=== PATIENT | male | born 1940 | race Caucasian/White ===

== ENCOUNTER 2016-12-24 20:09 | Inpatient (IN) | payer OTHER, MEDICARE ==
[~2016-12-24] VITALS: Ht 182.9 cm; Wt 74.4 kg
[2016-12-24 20:14] VITALS: BP 190/129; PULSE 93; RESP 18; TEMP 97.6; O2SAT 97
[2016-12-24 20:57] VITALS: BP 224/134; PULSE 119; PULSE 20; RESP 18; TEMP 98.1; O2SAT 99
[2016-12-24 21:03] LABS: BASOPHIL # 0.1 TH/MM3 (0-0.2); BASOPHIL % 0.8 % (0.0-2.0); EOSINOPHIL # 0.1 TH/MM3 (0-0.4); EOSINOPHIL % 1.1 % (0.0-4.0); HEMO FLAGS DIFF FINAL; LYMPH % 19.1 % (9.0-44.0); LYMPHOCYTE # 2.4 TH/MM3 (1.0-4.8); MEAN CELL VOLUME 85.6 FL (80.0-100.0); MEAN CORPUSCULAR HEMOGLOBIN 27.9 PG (27.0-34.0); MEAN CORPUSCULAR HGB CONC 32.6 % (32.0-36.0); MONO % 7.8 % (0.0-8.0); NEUT % 71.2 % (16.0-70.0); PLATELET COUNT 306 TH/MM3 (150-450); RED BLOOD COUNT 5.26 MIL/MM3 (4.50-5.90); RED CELL DISTRIBUTION WIDTH 14.5 % (11.6-17.2); WHITE BLOOD COUNT 12.6 TH/MM3 (4.0-11.0)
[2016-12-24] MEDS ORDERED: DILTIAZEM HCL 25 MG/5 ML VIAL IV ONE (21:15)
[2016-12-24] MEDS ORDERED: SODIUM CHLORIDE 0.9% FLUSH 10 ML FLUSH IVF PRN (21:15)
--- NOTE | 2016-12-24 21:21 | PD ---
HPI Chief Complaint: Psychiatric Symptoms Time Seen by Provider: 21:15 Travel History International Travel<30 days: No Contact w/Intl Traveler<30days: No Traveled to known affect area: No History of Present Illness HPI Patient is a 76-year-old male presenting to emergency for under [place] act to suicidal ideations. Additionally patient has initially complained of chest pain or shortness of breath. Or to noncompliance of his medications for well over a year. He states she's been depressed for some time, he was previously prescribed citalopram but states marijuana works better. Patient denies any previous suicide attempt but states he's thought about suicide for some time now. He reports that he would cut his wrists. Patient is , he lives with his . He states that the relationship is good most of the time until recently. Patient would not elaborate as to what was going on. His past medical history is significant for atrial fibrillation, throat cancer, coronary artery disease, hypothyroidism, hyperlipidemia, COPD, depression, pacemaker. PFSH Past Medical History Atrial Fibrillation: Yes Depression: Yes Cancer: Yes (throat) High Cholesterol: Yes COPD: Yes Coronary Artery Disease: Yes Hypertension: Yes Thyroid Disease: Yes Past Surgical History Body Medical Devices: pacemaker Coronary Stent: Yes Other Surgery: Yes (throat surgery, carotid) Social History Alcohol Use: No Tobacco Use: No Substance Use: Yes (marijuana) Allergies-Medications (Allergen,Severity, Reaction): Uncoded Allergies: pain meds (Adverse Reaction, Unknown, 12/24/16) pt states he gets ill Reported Meds & Prescriptions Reported Meds & Active Scripts Active Eliquis (Apixaban) 5 Mg Tab 5 Mg PO BID Cardizem CD 24 HR (Diltiazem CD 24 HR) 120 Mg Caper 120 Mg PO DAILY Synthroid (Levothyroxine Sodium) 100 Mcg Tab 100 Mcg PO DAILY Review of Systems Except as stated in HPI: all other systems reviewed are Neg Cardiovascular: Positive: Chest Pain or Discomfort Respiratory: Positive: Shortness of Breath Psychiatric: Positive: Depression, Suicidal Ideations Physical Exam Narrative \GENERAL: Well-developed, well-nourished, alert elderly gentleman. Tearful, in no acute distress SKIN: Warm and dry. HEAD: Atraumatic. Normocephalic. EYES: Pupils equal and round. No scleral icterus. No injection or drainage. ENT: No nasal bleeding or discharge. Mucous membranes pink and moist. NECK: Trachea midline. No JVD. CARDIOVASCULAR: Irregularly irregular, no murmur noted. RESPIRATORY: No accessory muscle use. Clear to auscultation. Breath sounds diminished GASTROINTESTINAL: Abdomen soft, non-tender, nondistended. Hepatic and splenic margins not palpable. MUSCULOSKELETAL: Extremities without clubbing, cyanosis, or edema. No obvious deformities. NEUROLOGICAL: Awake and alert. No obvious cranial nerve deficits. Motor grossly within normal limits. Five out of 5 muscle strength in the arms and legs. Normal speech. PSYCHIATRIC: Depressed mood and affect; insight and judgment impaired. Data Data Last Documented VS Vital Signs Date Time Temp Pulse Resp B/P Pulse Ox O2 Delivery O2 Flow Rate FiO2 12/25/16 06:48 98.1 97 18 136/101 99 Room Air Orders Electrocardiogram (12/24/16 20:25) Complete Blood Count With Diff (12/24/16 20:25) Basic Metabolic Panel (Bmp) (12/24/16 20:25) Ckmb (Isoenzyme) Profile (12/24/16 20:25) Troponin I (12/24/16 20:25) Chest, Single Ap (12/24/16 20:25) Iv Access Insert/Monitor (12/24/16 20:25) Ecg Monitoring (12/24/16 20:25) Oxygen Administration (12/24/16 20:25) Oximetry (12/24/16 20:25) Comprehensive Metabolic Panel (12/24/16 21:05) B-Type Natriuretic Peptide (12/24/16 21:05) Magnesium (Mg) (12/24/16 21:05) Urinalysis - C+S If Indicated (12/24/16 21:05) Sodium Chloride 0.9% Flush (Ns Flush) (12/24/16 21:15) Thyroid Stimulating Hormone (12/24/16 21:05) Free Thyroxine (T4) (12/24/16 21:05) Diltiazem Inj (Cardizem Inj) (12/24/16 21:15) Diltiazem (Cardizem) (12/24/16 21:45) Electrocardiogram (12/24/16 ) Sodium Chlorid 0.9% 500 Ml Inj (Ns 500 M (12/24/16 22:30) Act Partial Throm Time (Ptt) (12/24/16 23:06) Prothrombin Time / Inr (Pt) (12/24/16 23:06) Levothyroxine (Synthroid) (12/24/16 23:30) Apixaban (Eliquis) (12/24/16 23:30) Ondansetron Inj (Zofran Inj) (12/25/16 00:30) ^ Other Nursing Orders (12/25/16 08:11) Admit To Inpatient Psych (12/25/16 ) Vital Signs (Adult) POLLO.Q12H.E (12/25/16 08:12) Activity Oob Ad Karen (12/25/16 08:12) Lorazepam (Ativan) (12/25/16 08:15) Lorazepam Inj (Ativan Inj) (12/25/16 08:15) Lorazepam (Ativan) (12/25/16 08:15) Lorazepam Inj (Ativan Inj) (12/25/16 08:15) Acetaminophen (Tylenol) (12/25/16 08:15) Magnesium Hydroxide Liq (Milk Of Magnesi (12/25/16 08:15) Al-Mag Hy-Si 40-40-4 Mg/Ml Liq (Mag-Al P (12/25/16 08:15) Nicotine 21 Mg Patch.24 Hr (Habitrol 21 (12/25/16 09:00) Basic Metabolic Panel (Bmp) (12/26/16 06:00) Lipid Profile (12/26/16 06:00) Hemoglobin (Hgb) A1c (12/26/16 06:00) Consult Psychiatry (12/25/16 ) Consult Hospitalist (12/25/16 ) Labs Laboratory Tests Test 12/24/16 12/24/16 12/24/16 20:30 22:20 23:17 White Blood Count 12.6 TH/MM3 Red Blood Count 5.26 MIL/MM3 Hemoglobin 14.7 GM/DL Hematocrit 45.0 % Mean Corpuscular Volume 85.6 FL Mean Corpuscular Hemoglobin 27.9 PG Mean Corpuscular Hemoglobin 32.6 % Concent Red Cell Distribution Width 14.5 % Platelet Count 306 TH/MM3 Mean Platelet Volume 8.7 FL Neutrophils (%) (Auto) 71.2 % Lymphocytes (%) (Auto) 19.1 % Monocytes (%) (Auto) 7.8 % Eosinophils (%) (Auto) 1.1 % Basophils (%) (Auto) 0.8 % Neutrophils # (Auto) 9.0 TH/MM3 Lymphocytes # (Auto) 2.4 TH/MM3 Monocytes # (Auto) 1.0 TH/MM3 Eosinophils # (Auto) 0.1 TH/MM3 Basophils # (Auto) 0.1 TH/MM3 CBC Comment DIFF FINAL Differential Comment Sodium Level 140 MEQ/L Potassium Level 4.1 MEQ/L Chloride Level 106 MEQ/L Carbon Dioxide Level 21.8 MEQ/L Anion Gap 12 MEQ/L Blood Urea Nitrogen 19 MG/DL Creatinine 1.80 MG/DL Estimat Glomerular Filtration 37 ML/MIN Rate Random Glucose 93 MG/DL Calcium Level 10.3 MG/DL Magnesium Level 2.0 MG/DL Total Bilirubin 0.7 MG/DL Aspartate Amino Transf 12 U/L (AST/SGOT) Alanine Aminotransferase 14 U/L (ALT/SGPT) Alkaline Phosphatase 70 U/L Total Creatine Kinase 67 U/L Troponin I LESS THAN 0.02 NG/ML B-Type Natriuretic Peptide 131 PG/ML Total Protein 8.6 GM/DL Albumin 4.1 GM/DL Free Thyroxine 0.97 NG/DL Thyroid Stimulating Hormone 22.700 uIU/ML 3rd Gen Urine Color YELLOW Urine Turbidity CLEAR Urine pH 6.0 Urine Specific [place] 1.010 Urine Protein 100 mg/dL Urine Glucose (UA) NEG mg/dL Urine Ketones NEG mg/dL Urine Occult Blood SMALL Urine Nitrite NEG Urine Bilirubin NEG Urine Urobilinogen LESS THAN 2.0 MG/DL Urine Leukocyte Esterase MOD Urine RBC LESS THAN 1 /hpf Urine WBC 4 /hpf Urine Squamous Epithelial <1 /hpf Cells Urine Transitional Epithelial <1 /hpf Cells Urine Mucus FEW /lpf Microscopic Urinalysis Comment CULT NOT INDICATED Prothrombin Time 11.2 SEC Prothromb Time International 1.0 RATIO Ratio Activated Partial 24.7 SEC Thromboplast Time MDM Medical Decision Making Medical Screen Exam Complete: Yes Emergency Medical Condition: Yes Interpretation(s) Last Impressions Chest X-Ray 12/24/162024 Signed Impressions: Service Date/Time: Saturday, December 24, 2016 20:41 - CONCLUSION: No acute disease. Toi Call MD FACR Laboratory Tests Test 12/24/16 12/24/16 20:30 22:20 White Blood Count 12.6 TH/MM3 Red Blood Count 5.26 MIL/MM3 Hemoglobin 14.7 GM/DL Hematocrit 45.0 % Mean Corpuscular Volume 85.6 FL Mean Corpuscular Hemoglobin 27.9 PG Mean Corpuscular Hemoglobin 32.6 % Concent Red Cell Distribution Width 14.5 % Platelet Count 306 TH/MM3 Mean Platelet Volume 8.7 FL Neutrophils (%) (Auto) 71.2 % Lymphocytes (%) (Auto) 19.1 % Monocytes (%) (Auto) 7.8 % Eosinophils (%) (Auto) 1.1 % Basophils (%) (Auto) 0.8 % Neutrophils # (Auto) 9.0 TH/MM3 Lymphocytes # (Auto) 2.4 TH/MM3 Monocytes # (Auto) 1.0 TH/MM3 Eosinophils # (Auto) 0.1 TH/MM3 Basophils # (Auto) 0.1 TH/MM3 CBC Comment DIFF FINAL Differential Comment Sodium Level 140 MEQ/L Potassium Level 4.1 MEQ/L Chloride Level 106 MEQ/L Carbon Dioxide Level 21.8 MEQ/L Anion Gap 12 MEQ/L Blood Urea Nitrogen 19 MG/DL Creatinine 1.80 MG/DL Estimat Glomerular Filtration 37 ML/MIN Rate Random Glucose 93 MG/DL Calcium Level 10.3 MG/DL Magnesium Level 2.0 MG/DL Total Bilirubin 0.7 MG/DL Aspartate Amino Transf 12 U/L (AST/SGOT) Alanine Aminotransferase 14 U/L (ALT/SGPT) Alkaline Phosphatase 70 U/L Total Creatine Kinase 67 U/L Troponin I LESS THAN 0.02 NG/ML B-Type Natriuretic Peptide 131 PG/ML Total Protein 8.6 GM/DL Albumin 4.1 GM/DL Free Thyroxine 0.97 NG/DL Thyroid Stimulating Hormone 22.700 uIU/ML 3rd Gen Urine Color YELLOW Urine Turbidity CLEAR Urine pH 6.0 Urine Specific [place] 1.010 Urine Protein 100 mg/dL Urine Glucose (UA) NEG mg/dL Urine Ketones NEG mg/dL Urine Occult Blood SMALL Urine Nitrite NEG Urine Bilirubin NEG Urine Urobilinogen LESS THAN 2.0 MG/DL Urine Leukocyte Esterase MOD Urine RBC LESS THAN 1 /hpf Urine WBC 4 /hpf Urine Squamous Epithelial <1 /hpf Cells Urine Transitional Epithelial <1 /hpf Cells Urine Mucus FEW /lpf Microscopic Urinalysis Comment CULT NOT INDICATED Vital Signs Date Time Temp Pulse Resp B/P Pulse Ox O2 Delivery O2 Flow Rate FiO2 12/24/16 21:01 138 18 12/24/16 20:57 98.1 119 18 224/134 99 12/24/16 20:14 97.6 93 18 190/129 97 Room Air Differential Diagnosis Cardiac arrhythmia versus electrolyte abnormality versus hypothyroidism versus depression versus suicidal ideations versus acute coronary syndrome versus congestive heart failure versus other Narrative Course Patient is a 76-year-old male who is currently under [place] act for suicidal ideations. Patient appears tearful, depressed. Patient reports noncompliance with his home medications including medications for atrial fibrillation, hypothyroidism and depression. Initial EKG shows atrial fibrillation with RVR with a rate of 130. Labs and imaging ordered and pending. Cardizem 20 mg IV 1 dose ordered. After IV dose of Cardizem patient's heart rate was in the 70s, blood pressure normalized. Oral Cardizem ordered. CBC with a white count of 12.6 Chemistry with an elevated BUN and creatinine 19/1.77, 500 cc normal saline bolus ordered. Troponin is less than 0.02 Chest x-ray shows no acute disease TSH is elevated at 22.7 BNP 131 Urinalysis small occult blood, no infection noted. Hospitalist paged for admission. Dr. Santana did not accept admission. She stated that they would follow him medically if/when he was admitted to psych. She was informed that patient has been noncompliant with medications, that he was not anticoagulated, discuss results of labs and imaging. At this time after discussion with the hospitalist and her recommendation to allow psych to admit patient, patient will be medically cleared for psychiatric admission. Atrial fibrillation with RVR was controlled after Cardizem IV. Patient's heart rate normalized in the 80s. He was given a supplemental dose of oral Cardizem. Discussed this with my attending physician after I spoke with hospitalist and the following plan of care will be initiated. Patient will be provided with prescriptions for Cardizem CD 120 mg daily, eliquis 5 mg bid, Synthroid 100 g daily. He will be given first dose of Eliquis and Synthroid now. Discussed with Gina lin RN regarding patient's mental status as well as hospitalist plan. Diagnosis Primary Impression: Atrial fibrillation with RVR Additional Impressions: Suicidal ideations Depression Qualified Code: F32.9 - Depression, unspecified depression type Acute renal insufficiency Hypothyroidism Qualified Code: E03.9 - Hypothyroidism, unspecified type Medical clearance for psychiatric admission Chronic a-fib History of medication noncompliance Scripts Apixaban (Eliquis)5 Mg Tab5 Mg PO BID #60 TAB Ref 0 Prov:Nasra Ott 12/24/16 Diltiazem CD 24 HR (Cardizem CD 24 HR)120 Mg [id number] Mg PO DAILY #30 CAP Ref 0 Prov:Nasra Ott 12/24/16 Levothyroxine (Synthroid)100 Mcg Xit264 Mcg PO DAILY #30 TAB Ref 0 Prov:Nasra Ott 12/24/16 Condition: Stable Nasra Ott Dec 24, 2016 21:21
[2016-12-24 21:24] LABS: ANION GAP 9 MEQ/L (5-15); BLOOD UREA NITROGEN 19 MG/DL (7-18); CHLORIDE 106 MEQ/L (98-107); GLOMERULAR FILTRATION RATE 38 ML/MIN (>89); POTASSIUM 4.1 MEQ/L (3.5-5.1); SODIUM (NA) 139 MEQ/L (136-145)
--- NOTE | 2016-12-24 21:25 | RADRPT ---
EXAM DATE/TIME: 12/24/2016 20:41 [facility] COMPARISON: No previous studies available for comparison. INDICATIONS : Chest pain. MEDICAL HISTORY : Carotid stenosis. SURGICAL HISTORY : Carotid stent. Coronary artery stent. Pacemaker. ENCOUNTER: Initial ACUITY: 2 days PAIN SCORE: 110 LOCATION: Bilateral chest FINDINGS: A single view of the chest demonstrates the lungs to be symmetrically aerated without evidence of mas s, infiltrate or effusion. Pacemaker is implanted on the left. The cardiomediastinal contours are u nremarkable. Osseous structures are intact. CONCLUSION: No acute disease. Toi Call MD FACR on December 24, 2016 at 21:23 Board Certified Radiologist. This report was verified electronically.
[2016-12-24 21:31] VITALS: BP 109/71; PULSE 75; RESP 18; O2SAT 98
[2016-12-24 21:32] VITALS: O2SAT 97
[2016-12-24 21:34] LABS: CREATINE KINASE 67 U/L (39-308)
[2016-12-24] MEDS ORDERED: DILTIAZEM HCL 90 MG TAB PO ONE (21:45)
[2016-12-24] MEDS ORDERED: SODIUM CHLORID 0.9% 500 ML INJ 500 ML IV ONE (22:30)
[2016-12-24 22:39] LABS: ANION GAP 12 MEQ/L (5-15); AST (GOT) 12 U/L (15-37); BICARBONATE 21.8 MEQ/L (21.0-32.0); BLOOD UREA NITROGEN 19 MG/DL (7-18); CHLORIDE 106 MEQ/L (98-107); GLOMERULAR FILTRATION RATE 37 ML/MIN (>89); POTASSIUM 4.1 MEQ/L (3.5-5.1); SODIUM (NA) 140 MEQ/L (136-145)
[2016-12-24 22:40] LABS: ALT (GPT) 14 U/L (12-78)
[2016-12-24 22:49] LABS: ALKALINE PHOSPHATASE 70 U/L (45-117); FREE T4 0.97 NG/DL (0.76-1.46); TOTAL BILIRUBIN ADULT 0.7 MG/DL (0.2-1.0)
[2016-12-24 22:50] LABS: BLOOD, URINE SMALL (NEG); GLUCOSE,URINE NEG (NEG); KETONE, URINE NEG (NEG); MUCUS URINE FEW /lpf (OCC); NITRITE,URINE NEG (NEG); SQUAMOUS EPITHELIAL CELL URINE <1 /hpf (0-5); TRANSITIONAL EPI CELLS, URINE <1 /hpf; URINE COLOR YELLOW (YELLW/STRAW)
[2016-12-24 22:55] LABS: COMMENT (UR) CULT NOT INDICATED; CULTURE IF INDICATED CULT NOT INDICATED
[2016-12-24] MEDS ORDERED: LEVO.1 PO (23:13)
[2016-12-24] MEDS ORDERED: APIX5TAB PO (23:13)
[2016-12-24] MEDS ORDERED: CARD120C4 PO (23:13)
[2016-12-24] MEDS ORDERED: APIXABAN 5 MG TABLET PO ONE (23:30)
[2016-12-24] MEDS ORDERED: LEVOTHYROXINE SODIUM 100 MCG TAB PO ONE (23:30)
[2016-12-24 23:45] LABS: APTT (PATIENT) 24.7 SEC (24.3-30.1); PROTHROMBIN TIME - PATIENT 11.2 SEC (9.8-11.6)
[2016-12-25] MEDS ORDERED: ONDANSETRON HCL 4 MG/2 ML VIAL IV PUSH ONE (00:30)
[2016-12-25 05:19] VITALS: BP 110/78; PULSE 96; RESP 18; O2SAT 100
[2016-12-25 06:48] VITALS: BP 136/101; PULSE 97; RESP 18; TEMP 98.1; O2SAT 99
[2016-12-25] MEDS ORDERED: ALUMINUM/MAGNESIUM/SIMETH 30 ML CUP PO PRN (08:15)
[2016-12-25] MEDS ORDERED: ACETAMINOPHEN 325 MG TAB PO PRN (08:15)
[2016-12-25] MEDS ORDERED: LORazepam 0.5 MG TAB PO PRN (08:15)
[2016-12-25] MEDS ORDERED: LORazepam 2 MG/ML VIAL IM PRN ×2 (08:15)
[2016-12-25] MEDS ORDERED: MAGNESIUM HYDROXIDE SUSP 30 ML CUP PO PRN (08:15)
[2016-12-25] MEDS ORDERED: LORazepam 1 MG TAB PO PRN (08:15)
[2016-12-25] MEDS ORDERED: LEVOTHYROXINE SODIUM 100 MCG TAB PO SCH (08:26)
[2016-12-25] MEDS: NICOTINE 21 MG/24 HR PATCH T-DERMAL SCH (09:00)
[2016-12-25 09:30] VITALS: BP 178/98; PULSE 99; RESP 18; O2SAT 99
[2016-12-25] MEDS: DILTIAZEM-CD 120 MG CAP ER PO SCH (09:35)
[2016-12-25] MEDS: APIXABAN 5 MG TABLET PO SCH ×2 (09:35→21:00)
--- NOTE | 2016-12-25 09:58 | EKG ---
Date Performed: 12/24/2016 Time Performed: 20:35:14 PTAGE: 76 years EKG: ATRIAL FIBRILLATION WITH RAPID VENTRICULAR RESPONSE Nonspecific ST abnormalities ABNORMAL E CG NO PREVIOUS TRACING DOCTOR: Herve Leyva Interpretating Date/Time 12/25/2016 09:52:51
--- NOTE | 2016-12-25 10:00 | EKG ---
Date Performed: 12/24/2016 Time Performed: 22:13:16 PTAGE: 76 years EKG: ATRIAL FIBRILLATION WITH RAPID VENTRICULAR RESPONSE Nonspecific ST-T wave changes Cannot ex clude ischemia Minor variation in the ST-T wave changes as seen in the prior tracing Clinical correla tion needed PREVIOUS TRACING : 12/24/2016 20.35 DOCTOR: Herve Leyva Interpretating Date/Time 12/25/2016 09:54:59
--- NOTE | 2016-12-25 10:21 | HHI.HP ---
Provisional Diagnosis Admission Date Dec 25, 2016 at 08:18 [place] I. Major depressive disorder, single episode, severe, without psychosis, PTSD [place] II. Deferred [place] III. A. fib, history of [place], throat cancer in remission [place] IV. Severe sense of guiltiness [place] V. 40 Certification of Person's Competence To Provide Express and Informed Consent I have personally examined Alex Naqvi , a person being served at [facility] on, Dec 25, 2016 09:55. Express and informed consent means consent voluntarily given in writing, by a competent person, after sufficient explanation and disclosure of the subject matter involved to enable the person to make a knowing and willful decision without any element of force, fraud, deceit, duress, or other form of constraint or coercion. This person is 18 years of age or older, is not now known to be incompetent to consent to treatment with a guardian advocate, and does not have a health care surrogate or proxy currently making medical treatment decisions. I have found this person to be one of the following: [] Competent to provide express and informed consent, as defined above, for voluntary admission to this facility and is competent to provide express and informed consent for treatment. He/she has the consistent capacity to make well reasoned, willful, and knowing decisions concerning his or her medical or mental health treatment. The person fully and consistently understands the purpose of the admission for examination/placement and is fully capable of personally exercising all rights assured under [place] Incompetent to provide express and informed consent to voluntary admission, and this is incompetent to provide express and informed consent to treatment. The person must be transferred to involuntary status and a petition for a guardian advocate filed with the Circuit Court. [X] Refusing to provide express and informed consent to voluntary admission but is competent to provide express and informed consent for treatment. The person must be discharged or transferred to involuntary status. Form shall be completed within 24 hours of a person's arrival at the receiving facility and filed in the clinical record of each person: 1. Admitted on a voluntary basis 2. Permitted to provide express and informed consent to his/her own treatment 3. Allowed to transfer from involuntary to voluntary status 4. Prior to permitting a person to consent to his or her own treatment after having been previously found incompetent to consent to treatment. History of Present Illness Capacity: Has Capacity HPI The patient is a 76-year-old man, domiciled in [place] with , retired, , with psychiatric history of PTSD, depression, cannabis use disorder, no previous hospitalizations, no active outpatient services, no psychotropics at this moment, no previous suicidal attempts, medical history of COPD, hypothyroidism, hyperlipidemia, pacemaker, coronary artery disease, throat cancer in remission, atrial fibrillation, presenting to emergency for under [place] act to suicidal ideations. Additionally patient has initially complained of chest pain or shortness of breath. Or to noncompliance of his medications for well over a year. He states she's been depressed for some time , he was previously prescribed citalopram but states marijuana works better. Patient denies any previous suicide attempt but states he's thought about suicide for some. On psychiatric evaluation today patient is found in his bed, he is tearful, seems to be objectively depressed, melancholic, just superficially cooperative, stating that he doesn't deserve to live anymore. Patient says that he has been having suicidal thoughts for a long time now, but yesterday he left his house in [place], he left a suicidal note to his , and he came to [place], went to a motel, bought some razors with the idea of cutting his wrist. Patient says that he doesn't know the reason of his depression. He says that he has been under the heel in the last months, feeling hopeless, helpless, empty, with generalized pessimism, useless, and very guilty about significant episodes his past. 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 Patient refused to elaborate about these thoughts and a stressful memories. Patient also reports poor energy, low appetite, weight loss, he has stopped taking his medication for medical conditions. Patient is fully oriented 3, but not further cognitive test could be performed due to lack of cooperation. Patient reports daily use of marijuana, occasional use of alcohol, denies other drugs. Patient says that he uses alcohol once a month, before just today he had several months without taking any alcohol. But, just today he drank a couple of beers in order to "do what I had to do without remorse". 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 Review of Systems Constitutional: DENIES: Diaphoretic episodes, Fatigue, Fever, Weight gain, Weight loss, Chills, Dizziness, Change in appetite, Night Sweats Endocrine: DENIES: Heat/cold intolerance, Polydipsia, Polyuria, Polyphagia Eyes: DENIES: Blurred vision, Diplopia, Eye inflammation, Eye pain, Vision loss , Photosensitivity, Double Vision Ears, nose, mouth, throat: DENIES: Tinnitus, Hearing loss, Vertigo, Nasal discharge, Oral lesions, Throat pain, Hoarseness, Ear Pain, Running Nose, Epistaxis, Sinus Pain, Toothache, Odynophagia Respiratory: DENIES: Apneas, Cough, Snoring, Wheezing, Hemoptysis, Sputum production, Shortness of breath Cardiovascular: DENIES: Chest pain, Palpitations, Syncope, Dyspnea on Exertion , PND, Lower Extremity Edema, Orthopnea, Claudication Gastrointestinal: DENIES: Abdominal pain, Black stools, Bloody stools, Constipation, Diarrhea, Nausea, Vomiting, Difficulty Swallowing, Anorexia Musculoskeletal: DENIES: Joint pain, Muscle aches, Stiffness, Joint Swelling, Back pain, Neck pain Integumentary: DENIES: Abnormal pigmentation, Nail changes, Pruritus, Rash Hematologic/lymphatic: DENIES: Bruising, Lymphadenopathy Immunologic/allergic: DENIES: Eczema, Urticaria Neurologic: DENIES: Abnormal gait, Headache, Localized weakness, Paresthesias, Seizures, Speech Problems, Tremor, Poor Balance Psychiatric: COMPLAINS OF: Depression, Suicidal Ideation, DENIES: Anxiety, Confusion, Mood changes, Hallucinations, Agitation, Homicidal Ideation, Delusions Past Psych History Violence risk - self (6 mos) Elevator risk for suicidality Substance Abuse History Drugs/Alcohol past 12 months Patient reports daily use of marijuana, occasional use of alcohol Past Family Social History Uncoded Allergies: pain meds (Adverse Reaction, Unknown, 12/24/16) pt states he gets ill Active Scripts Apixaban (Eliquis)5 Mg Tab5 Mg PO BID #60 TAB Ref 0 Prov:Nasra Ott 12/24/16 Diltiazem CD 24 HR (Cardizem CD 24 HR)120 Mg Upgto953 Mg PO DAILY #30 CAP Ref 0 Prov:Nasra Ott 12/24/16 Levothyroxine (Synthroid)100 Mcg Gmg259 Mcg PO DAILY #30 TAB Ref 0 Prov:Nasra Ott UNDERWRITER SOLICITATION DIRECTOR 12/24/16 Current Medications Medications (Trade) Dose Ordered Sig/David Route Start Time Stop Time Status Last Admin (NS Flush) 2 ml UNSCH PRN IVF 12/24/16 21:15 (Ativan Inj) 1 mg Q6H PRN IM 12/25/16 08:15 (Ativan Inj) 0.5 mg Q12H PRN IM 12/25/16 08:15 (Tylenol) 650 mg Q4H PRN PO 12/25/16 08:15 (Milk Of Magnesia Liq) 30 ml DAILY PRN PO 12/25/16 08:15 (Mag-Al Plus Susp Liq) 30 ml Q6H PRN PO 12/25/16 08:15 (Habitrol 21 Mg Patch.24 Hr) 1 patch DAILY T-DERMAL 12/25/16 09:00 (Eliquis) 5 mg BID PO 12/25/16 09:00 12/25/16 09:35 (Cardizem Cd) 120 mg DAILY PO 12/25/16 09:00 12/25/16 09:35 (Synthroid) 100 mcg DAILY@06 PO 12/25/16 08:26 12/25/16 09:14 Miscellaneous Information 1 HS T-DERMAL 12/25/16 21:00 Family History Patient denies psychiatric family history Social History Patient was born and raised in [place], he lives with his in [place], his retired, 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 2) Family support, service-connected Physical Exam On physical exam patient does not present any withdrawal symptoms, no EPS, no tremors, but marked psychomotor retardation Vital Signs Vital Signs Date Time Temp Pulse Resp B/P Pulse Ox O2 Delivery O2 Flow Rate FiO2 12/25/16 06:48 98.1 97 18 136/101 99 Room Air Lab Results Labs Laboratory Tests Test 12/24/16 12/24/16 20:30 22:20 White Blood Count 12.6 TH/MM3 Red Blood Count 5.26 MIL/MM3 Hemoglobin 14.7 GM/DL Hematocrit 45.0 % Mean Corpuscular Volume 85.6 FL Mean Corpuscular Hemoglobin 27.9 PG Mean Corpuscular Hemoglobin 32.6 % Concent Red Cell Distribution Width 14.5 % Platelet Count 306 TH/MM3 Mean Platelet Volume 8.7 FL Neutrophils (%) (Auto) 71.2 % Lymphocytes (%) (Auto) 19.1 % Monocytes (%) (Auto) 7.8 % Eosinophils (%) (Auto) 1.1 % Basophils (%) (Auto) 0.8 % Neutrophils # (Auto) 9.0 TH/MM3 Lymphocytes # (Auto) 2.4 TH/MM3 Monocytes # (Auto) 1.0 TH/MM3 Eosinophils # (Auto) 0.1 TH/MM3 Basophils # (Auto) 0.1 TH/MM3 CBC Comment DIFF FINAL Differential Comment Sodium Level 140 MEQ/L Potassium Level 4.1 MEQ/L Chloride Level 106 MEQ/L Carbon Dioxide Level 21.8 MEQ/L Anion Gap 12 MEQ/L Blood Urea Nitrogen 19 MG/DL Creatinine 1.80 MG/DL Estimat Glomerular Filtration 37 ML/MIN Rate Random Glucose 93 MG/DL Calcium Level 10.3 MG/DL Magnesium Level 2.0 MG/DL Total Bilirubin 0.7 MG/DL Aspartate Amino Transf 12 U/L (AST/SGOT) Alanine Aminotransferase 14 U/L (ALT/SGPT) Alkaline Phosphatase 70 U/L Total Creatine Kinase 67 U/L Troponin I LESS THAN 0.02 NG/ML B-Type Natriuretic Peptide 131 PG/ML Total Protein 8.6 GM/DL Albumin 4.1 GM/DL Free Thyroxine 0.97 NG/DL Thyroid Stimulating Hormone 22.700 uIU/ML 3rd Gen Urine Color YELLOW Urine Turbidity CLEAR Urine pH 6.0 Urine Specific [place] 1.010 Urine Protein 100 mg/dL Urine Glucose (UA) NEG mg/dL Urine Ketones NEG mg/dL Urine Occult Blood SMALL Urine Nitrite NEG Urine Bilirubin NEG Urine Urobilinogen LESS THAN 2.0 MG/DL Urine Leukocyte Esterase MOD Urine RBC LESS THAN 1 /hpf Urine WBC 4 /hpf Urine Squamous Epithelial <1 /hpf Cells Urine Transitional Epithelial <1 /hpf Cells Urine Mucus FEW /lpf Microscopic Urinalysis Comment CULT NOT INDICATED MDM Mental Status Examination Appearance elderly man, age appearing, in good shape, good hygiene, [facility], superficially cooperative, tearful, hypoactive Speech: Hesitant Orientation: x3 Memory: Unremarkable Thought Process: Logical, Goal Directed Thought Content: Unremarkable Hallucination Type: None Attention and Concentration: Good Suicidal Ideation: Yes Previous Suicide Attempts: Yes Homicidal Ideation: No Insight: Poor Judgment: Poor Affect: Sad, Oppositional Mood: Angry Motor Activity: Normal gait Assessment & Plan Problem List: (1) Depression Assessment & Plan: On psychiatric evaluation this morning patient is superficially cooperative, objectively depressed, melancholic, very tearful throughout the interview. Patient reports that in the last month he has been having constant suicidal ideation, with increased sense of guiltiness, hopelessness, helplessness, uselessness, loneliness. He also reports decreased appetite, weight loss, loss of interest in life and self neglect. Yesterday patient left a suicidal note to his , drove from [place] to [place], registered in a motel, bought some razors with the intention to commit suicide. Patient continues to have suicidal ideation and no plan at this moment. Patient also seems to have decompensated PTSD, but further investigation is needed. At this moment the patient represents an increased risk of suicidality and needs to be admitted in psychiatry for stabilization and safety. More collateral information from his is needed. Transfer to [facility] once medically clear. Will consult psychiatry and hospitalist, for second opinion and to follow-up medical conditions respectively. machine clothing worker intervention for psychosocial assessment, collateral information, individual and group counseling/activities, to work in a safe discharge plan. We will start citalopram 10 mg for depression, trazodone 50 mg at bedtime for insomnia and depression. Monitor potential withdrawal symptoms. Extensive support, motivation and psychoeducation provided. Patient needs to remain in constant 1: 1 observation with a sitter while in the ER. ICD Code: F32.9 Assessment & Plan Estimated LOS: days Problem Qualifiers (1) Depression: Qualified Code: F32.9 - Depression, unspecified depression type Wayne Berkowitz MD Dec 25, 2016 10:21
[2016-12-25 10:57] VITALS: BP 180/92; PULSE 104; RESP 18; TEMP 97.9; O2SAT 98
[2016-12-25] MEDS ORDERED: CITALOPRAM HYDROBROMIDE 20 MG TAB PO ONE (11:30)
[2016-12-25] MEDS ORDERED: PILL SPLITTER OTHER PRN (12:15)
--- NOTE | 2016-12-25 14:38 | PD.CONS ---
[facility] By Dr. Berkowitz Reason for Consult Evaluate and manage A. fib and IN Primary Care Physician Non-Staff Diagnoses: History of Present Illness This is a 76-year-old male was brought in under [place] act secondary to suicidal ideations with history of depression. He has been noncompliant with medical therapy stating Celexa does not work. Consultation has been requested by his attending to evaluate and manage A. fib and [place]. Patient has history of atrial fibrillation status post pacemaker placement. He has been noncompliant with medical therapy. He denies chest pain, shortness of breath, palpitations, dizziness and diaphoresis(ER states he had CP and SOB). When he arrived in the emergency department he was in RVR and received Cardizem 20 g IV bolus and started on Cardizem by mouth and Eliquis. CHA2DS vasc of 3 for hypertension, coronary artery disease and age. Patient agrees with anticoagulation. Patient also has history of coronary artery disease status post stents 4 in 2004. He has been asymptomatic even though noncompliant with medical therapy. Claims negative stress test 2-3 months ago. 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 Patient is sensitive to antihypertensives stating his blood pressure drops with certain medications which he can't recall but remembers that metoprolol causes hypotension. All other systems reviewed negative Review of Systems Except as stated in HPI: all other systems reviewed are Neg Past Family Social History Allergies: Uncoded Allergies: pain meds (Adverse Reaction, Unknown, 12/24/16) pt states he gets ill Past Medical History As previously mentioned Past Surgical History As previously mentioned. Thyroid and carotid surgery Reported Medications Noncompliant Family History Denies coronary artery disease and diabetes mellitus Social History Does not smoke or drink but abuses marijuana Physical Exam Vital Signs Vital Signs Date Time Temp Pulse Resp B/P Pulse Ox O2 Delivery O2 Flow Rate FiO2 12/25/16 10:57 97.9 104 18 180/92 98 12/25/16 09:30 99 18 178/98 99 Room Air 12/25/16 06:48 98.1 97 18 136/101 99 Room Air 12/25/16 05:19 96 18 110/78 100 Room Air 12/24/16 21:32 97 Room Air 12/24/16 21:32 97 Room Air 12/24/16 21:31 75 18 109/71 98 12/24/16 21:01 138 18 12/24/16 20:57 98.1 119 18 224/134 99 12/24/16 20:14 97.6 93 18 190/129 97 Room Air Physical Exam GENERAL: Well-developed, well-nourished in no distress SKIN: Warm and dry. HEAD: Atraumatic. Normocephalic. EYES: Pupils equal and round. No scleral icterus. No injection or drainage. ENT: No nasal bleeding or discharge. Mucous membranes pink and moist. NECK: Trachea midline. No JVD. CARDIOVASCULAR: Regular rate and irregular rhythm. RESPIRATORY: No accessory muscle use. Clear to auscultation. Breath sounds equal bilaterally. GASTROINTESTINAL: Abdomen soft, non-tender, nondistended. MUSCULOSKELETAL: Extremities without clubbing, cyanosis, or edema. No obvious deformities. NEUROLOGICAL: Awake and alert. No obvious cranial nerve deficits. Motor grossly within normal limits. Five out of 5 muscle strength in the arms and legs. Normal speech. PSYCHIATRIC: Appropriate mood and affect; insight and judgment normal. Laboratory Laboratory Tests Test 12/24/16 12/24/16 12/24/16 20:30 22:20 23:17 White Blood Count 12.6 Red Blood Count 5.26 Hemoglobin 14.7 Hematocrit 45.0 Mean Corpuscular Volume 85.6 Mean Corpuscular Hemoglobin 27.9 Mean Corpuscular Hemoglobin 32.6 Concent Red Cell Distribution Width 14.5 Platelet Count 306 Mean Platelet Volume 8.7 Neutrophils (%) (Auto) 71.2 Lymphocytes (%) (Auto) 19.1 Monocytes (%) (Auto) 7.8 Eosinophils (%) (Auto) 1.1 Basophils (%) (Auto) 0.8 Neutrophils # (Auto) 9.0 Lymphocytes # (Auto) 2.4 Monocytes # (Auto) 1.0 Eosinophils # (Auto) 0.1 Basophils # (Auto) 0.1 CBC Comment DIFF FINAL Differential Comment Sodium Level 140 Potassium Level 4.1 Chloride Level 106 Carbon Dioxide Level 21.8 Anion Gap 12 Blood Urea Nitrogen 19 Creatinine 1.80 Estimat Glomerular Filtration 37 Rate Random Glucose 93 Calcium Level 10.3 Magnesium Level 2.0 Total Bilirubin 0.7 Aspartate Amino Transf 12 (AST/SGOT) Alanine Aminotransferase 14 (ALT/SGPT) Alkaline Phosphatase 70 Total Creatine Kinase 67 Troponin I LESS THAN 0.02 B-Type Natriuretic Peptide 131 Total Protein 8.6 Albumin 4.1 Free Thyroxine 0.97 Thyroid Stimulating Hormone 22.700 3rd Gen Urine Color YELLOW Urine Turbidity CLEAR Urine pH 6.0 Urine Specific [place] 1.010 Urine Protein 100 Urine Glucose (UA) NEG Urine Ketones NEG Urine Occult Blood SMALL Urine Nitrite NEG Urine Bilirubin NEG Urine Urobilinogen LESS THAN 2.0 Urine Leukocyte Esterase MOD Urine RBC LESS THAN 1 Urine WBC 4 Urine Squamous Epithelial <1 Cells Urine Transitional Epithelial <1 Cells Urine Mucus FEW Microscopic Urinalysis Comment CULT NOT INDICATED Prothrombin Time 11.2 Prothromb Time International 1.0 Ratio Activated Partial 24.7 Thromboplast Time Result Diagram: 12/24/16202912/24/162029 Imaging EKG tracing interpreted by me with A. fib with RVR Chest x-ray image interpreted with no acute cardiopulmonary disease Last Impressions Chest X-Ray 12/24/162024 Signed Impressions: Service Date/Time: Saturday, December 24, 2016 20:41 - CONCLUSION: No acute disease. Toi Call MD FACR Assessment and Plan Assessment and Plan This is a 76-year-old male was brought in under [place] act secondary to suicidal ideations with history of depression. He has been noncompliant with medical therapy stating Celexa does not work. Consultation has been requested by his attending to evaluate and manage A. fib and [place]. Atrial fibrillation status post pacemaker placement. He has been noncompliant with medical therapy. He denies chest pain, shortness of breath, palpitations, dizziness and diaphoresis(ER states he had CP and SOB). When he arrived in the emergency department he was in RVR and received Cardizem 20 g IV bolus and started on Cardizem by mouth and Eliquis. CHA2DS vasc of 3 for hypertension, coronary artery disease and age. Patient agrees with anticoagulation. Coronary artery disease status post stents 4 in 2004. He has been asymptomatic even though noncompliant with medical therapy. Claims negative stress test 2-3 months ago. Noncompliant with aspirin and Plavix. Start aspirin and hold Plavix patient on Eliquis. Intolerant to beta blockers. Hypothyroidism not controlled TSH of 22 secondary to noncompliance. This can contribute to his depression. We will adjust Synthroid dose to 112 g daily based on his weight and repeat TSH in 6 weeks. PAD status post carotid surgery. On aspirin Hyperlipidemia. 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 Patient is sensitive to antihypertensives stating his blood pressure drops with certain medications which he can't recall but remembers that metoprolol causes hypotension. Patient received fluid bolus in the ED. Repeat BMP in the morning. Avoid nephrotoxins. Obtain records from [place] for comparison Nursing staff to obtain med list from his DVT prophylaxis with [place] Discussed Condition With Patient and nursing staff Long Reid MD Dec 25, 2016 14:38
[2016-12-25] MEDS ORDERED: TAMS0.4C4 PO (16:47)
[2016-12-25] MEDS ORDERED: METO25TA3 PO (16:47)
[2016-12-25] MEDS ORDERED: ROSU1TAB10 PO (16:47)
[2016-12-25] MEDS ORDERED: ASPI81TA11 PO (16:47)
[2016-12-25] MEDS ORDERED: CLOP75TA PO (16:47)
[2016-12-25] MEDS ORDERED: FINA5TAB2 PO (16:47)
[2016-12-25 18:59] VITALS: BP 164/103; PULSE 92; RESP 17; TEMP 98.7; O2SAT 98
[2016-12-25] MEDS ORDERED: traZODone HCL 50 MG TAB PO SCH (21:00)
[2016-12-25] MEDS: REMOVE OLD NICODERM (NICOTINE) PATCH T-DERMAL SCH (21:00)
[2016-12-26] MEDS: LEVOTHYROXINE SODIUM 112 MCG TAB PO SCH (06:00)
[2016-12-26 06:23] VITALS: BP 113/79; PULSE 80; RESP 16; TEMP 98; O2SAT 96
[2016-12-26] MEDS: NICOTINE 21 MG/24 HR PATCH T-DERMAL SCH (09:00)
[2016-12-26] MEDS: ASPIRIN EC 81 MG TABEC PO SCH (09:00)
--- NOTE | 2016-12-26 09:15 | HHI.PR ---
Subjective Remarks Follow-up A. fib and hyperlipidemia. Patient has no complaints denies chest pain, palpitations and shortness of breath. Agrees to be restarted on Crestor. Discussed with RN to follow up requested outside records for comparison specially of renal function. Objective Vitals Vital Signs Date Time Temp Pulse Resp B/P Pulse Ox O2 Delivery O2 Flow Rate FiO2 12/26/16 06:23 98.0 80 16 113/79 96 12/25/16 18:59 98.7 92 17 164/103 98 12/25/16 10:57 97.9 104 18 180/92 98 12/25/16 09:30 99 18 178/98 99 Room Air I/O 12/25/16 12/25/16 12/25/16 12/26/16 12/26/16 12/26/16 07:00 15:00 23:00 07:00 15:00 23:00 Intake Total 240 ml Balance 240 ml Intake Oral 240 ml Result Diagram: 12/24/16202912/24/162029 Imaging Last Impressions Chest X-Ray 12/24/162024 Signed Impressions: Service Date/Time: Saturday, December 24, 2016 20:41 - CONCLUSION: No acute disease. Toi Call MD FACR Objective Remarks GENERAL: Well-developed, well-nourished in no distress SKIN: Warm and dry. HEAD: Atraumatic. Normocephalic. EYES: Pupils equal and round. No scleral icterus. No injection or drainage. ENT: No nasal bleeding or discharge. Mucous membranes pink and moist. NECK: Trachea midline. No JVD. CARDIOVASCULAR: Regular rate and irregular rhythm. RESPIRATORY: No accessory muscle use. Clear to auscultation. Breath sounds equal bilaterally. GASTROINTESTINAL: Abdomen soft, non-tender, nondistended. MUSCULOSKELETAL: Extremities without clubbing, cyanosis, or edema. No obvious deformities. NEUROLOGICAL: Awake and alert. No obvious cranial nerve deficits. Motor grossly within normal limits. Five out of 5 muscle strength in the arms and legs. Normal speech. PSYCHIATRIC: Appropriate mood and affect; insight and judgment normal. A/P Assessment and Plan This is a 76-year-old male was brought in under [place] act secondary to suicidal ideations with history of depression. He has been noncompliant with medical therapy stating Celexa does not work. Consultation has been requested by his attending to evaluate and manage A. fib and [place]. Atrial fibrillation status post pacemaker placement. He has been noncompliant with medical therapy. He denies chest pain, shortness of breath, palpitations, dizziness and diaphoresis(ER states he had CP and SOB). When he arrived in the emergency department he was in RVR and received Cardizem 20 g IV bolus and started on Cardizem by mouth and Eliquis. CHA2DS vasc of 3 for hypertension, coronary artery disease and age. Patient agrees with anticoagulation. Improved with controlled ventricular response. Coronary artery disease status post stents 4 in 2004. He has been asymptomatic even though noncompliant with medical therapy. Claims negative stress test 2-3 months ago. Noncompliant with aspirin and Plavix. Continue aspirin and hold Plavix patient on Eliquis. Intolerant to beta blockers. Hypothyroidism not controlled TSH of 22 secondary to noncompliance. This can contribute to his depression. We will adjust Synthroid dose to 112 g daily based on his weight and repeat TSH in 6 weeks. PAD status post carotid surgery. On aspirin Hyperlipidemia. 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 Patient is sensitive to antihypertensives stating his blood pressure drops with certain medications which he can't recall but remembers that metoprolol causes hypotension. Patient received fluid bolus in the ED. Repeat BMP shows improving creatinine. Avoid nephrotoxins. Obtain records from [place] for comparison DVT prophylaxis with Long Hyde MD Dec 26, 2016 09:15
[2016-12-26] MEDS: DILTIAZEM-CD 120 MG CAP ER PO SCH (09:48)
[2016-12-26] MEDS: APIXABAN 5 MG TABLET PO SCH ×2 (09:48→20:50)
[2016-12-26 11:40] LABS: ANION GAP 9 MEQ/L (5-15); BICARBONATE 27.9 MEQ/L (21.0-32.0); BLOOD UREA NITROGEN 21 MG/DL (7-18); CHLORIDE 102 MEQ/L (98-107); GLOMERULAR FILTRATION RATE 45 ML/MIN (>89); POTASSIUM 3.8 MEQ/L (3.5-5.1); SODIUM (NA) 139 MEQ/L (136-145)
[2016-12-26 11:42] LABS: HDL CHOLESTEROL 58.4 MG/DL (40.0-60.0); LDL CHOLESTEROL 203 MG/DL (0-99)
--- NOTE | 2016-12-26 13:34 | PD.PSY.CON ---
Provisional Diagnosis Admission Date Dec 25, 2016 at 08:18 [place] I. Major depressive disorder, single episode, severe, without psychosis, PTSD [place] II. Deferred [place] III. A. fib, history of PA, throat cancer in remission [place] IV. Severe sense of guiltiness [place] V. 40 History of Present Illness Service Psychiatry Consult Requested By Primary Care Physician Non-Staff HPI The patient is a 76-year-old man, domiciled in [place] with , retired, , with psychiatric history of PTSD, depression, cannabis use disorder, no previous hospitalizations, no active outpatient services, no psychotropics at this moment, no previous suicidal attempts, medical history of COPD, hypothyroidism, hyperlipidemia, pacemaker, coronary artery disease, throat cancer in remission, atrial fibrillation, presenting to emergency for under [place] act to suicidal ideations. Additionally patient has initially complained of chest pain or shortness of breath. Or to noncompliance of his medications for well over a year. He states she's been depressed for some time , he was previously prescribed citalopram but states marijuana works better. Patient denies any previous suicide attempt but states he's thought about suicide for some. On psychiatric evaluation today patient is found in his bed, he is tearful, seems to be objectively depressed, melancholic, just superficially cooperative, stating that he doesn't deserve to live anymore. Patient says that he has been having suicidal thoughts for a long time now, but yesterday he left his house in [place], he left a suicidal note to his , and he came to [place], went to a motel, bought some razors with the idea of cutting his wrist. Patient says that he doesn't know the reason of his depression. He says that he has been under the heel in the last months, feeling hopeless, helpless, empty, with generalized pessimism, useless, and very guilty about significant episodes his past. 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 Patient refused to elaborate about these thoughts and a stressful memories. Patient also reports poor energy, low appetite, weight loss, he has stopped taking his medication for medical conditions. Patient is fully oriented 3, but not further cognitive test could be performed due to lack of cooperation. Patient reports daily use of marijuana, occasional use of alcohol, denies other drugs. Patient says that he uses alcohol once a month, before just today he had several months without taking any alcohol. But, just today he drank a couple of beers in order to "do what I had to do without remorse". I try to get collateral information for his , , but unfortunately she did not warp picker the phone at this moment. 12/26/[address] Georges reviewed and agreed with. Patient seen by me in his room with floor staff, patient is alert though severely depressed with moderate psychomotor retardation, severe suicidality with suicidal intent. Patient lives Dr. Georges service. He is not first opinion petition supporting [place] act. I agree. Patient meets criteria for involuntary psychiatric hospitalization under the [place] act. I will sign second opinion petition supporting [place] act Past Family Social History Coded Allergies: Lopressor (Verified Adverse Reaction, Unknown, Hypotension, 12/25/16) Uncoded Allergies: pain meds (Adverse Reaction, Unknown, 12/24/16) pt states he gets ill Active Scripts Apixaban (Eliquis)5 Mg Tab5 Mg PO BID #60 TAB Ref 0 Prov:Nasra Ott 12/24/16 Diltiazem CD 24 HR (Cardizem CD 24 HR)120 Mg Hlaxl353 Mg PO DAILY #30 CAP Ref 0 Prov:Nasra Ott 12/24/16 Levothyroxine (Synthroid)100 Mcg Wtg330 Mcg PO DAILY #30 TAB Ref 0 Prov:Nasra Ott 12/24/16 Reported Medications Metoprolol Tartrate 25 Mg Tab25 Mg PO DAILY #30 TAB Ref 0 12/25/16 Clopidogrel 75 Mg Tab75 Mg PO DAILY #30 TAB Ref 0 12/25/[address] (Aspirin EC)81 Mg Tabdr81 Mg PO DAILY Ref 0 12/25/16 Tamsulosin 0.4 Mg Cap0.4 Mg PO HS #30 CAP Ref 0 12/25/16 Rosuvastatin 40 Mg Tab40 Mg PO DAILY #30 TAB Ref 0 12/25/16 Finasteride 5 Mg Tab5 Mg PO DAILY #30 TAB Ref 0 Do not crush. 12/25/16 Current Medications Medications (Trade) Dose Ordered Sig/David Route Start Time Stop Time Status Last Admin (NS Flush) 2 ml UNSCH PRN IVF 12/24/16 21:15 (Ativan Inj) 1 mg Q6H PRN IM 12/25/16 08:15 (Ativan Inj) 0.5 mg Q12H PRN IM 12/25/16 08:15 12/25/16 10:51 (Tylenol) 650 mg Q4H PRN PO 12/25/16 08:15 12/25/16 18:15 (Habitrol 21 Mg Patch.24 Hr) 1 patch DAILY T-DERMAL 12/25/16 09:00 (Eliquis) 5 mg BID PO 12/25/16 09:00 12/26/16 09:48 (Cardizem Cd) 120 mg DAILY PO 12/25/16 09:00 12/26/16 09:48 Miscellaneous Information 1 HS T-DERMAL 12/25/16 21:00 (Desyrel) 50 mg HS PO 12/25/16 21:00 (Pill Splitter) 1 ea UNSCH PRN OTHER 12/25/16 12:15 (Synthroid) 112 mcg DAILY@06 PO 12/26/16 06:00 12/26/16 06:00 (Ecotrin Ec) 81 mg DAILY PO 12/26/16 09:00 12/26/16 09:00 (Lipitor) 80 mg DAILY PO 12/27/16 09:00 Patient's Strengths (min. 2) Family support, service-connected Physical Exam Vital Signs Vital Signs Date Time Temp Pulse Resp B/P Pulse Ox O2 Delivery O2 Flow Rate FiO2 12/26/16 06:23 98.0 80 16 113/79 96 12/25/16 09:30 Room Air I/O 12/25/16 12/25/16 12/26/16 08:00 16:00 00:00 Intake Total 240 ml Balance 240 ml Mental Status Examination Speech: Hesitant Orientation: x3 Memory: Unremarkable Thought Process: Logical, Goal Directed Thought Content: Unremarkable Hallucination Type: None Attention and Concentration: Good Suicidal Ideation: Yes Previous Suicide Attempts: Yes Homicidal Ideation: No Insight: Poor Judgment: Poor Affect: Sad, Oppositional Mood: Angry Motor Activity: Normal gait Assessment & Plan Problem List: (1) Depression ICD Code: F32.9 Assessment & Plan Estimated LOS: days Problem Qualifiers (1) Depression: Alex Pérez MD 12, 2017 13:34
--- NOTE | 2016-12-26 13:54 | HHI.PYPN ---
Subjective Remarks Patient was seen today for psychiatric reevaluation along with rn social services Mirna, patient stated that he feels very depressed, hopeless, helpless, worthless and with frequent suicidal thoughts, no intention. She was able to contract for safety in the unit. He says that he has been feeling very guilty about episodes of his adolescence "when I was meeting with my brothers and sisters". He also says that he feels very guilty about cheating on his in the past. He says that he has not been a good person, and he has been causing problems to his and his kids. Patient says that he is motivated to get better, but most probably would try to commit suicide again if he continued to file this. She is fully oriented 3, with a good attention span, no fluctuation of consciousness. Compliant with psychotropics, no significant side effects reported. We had a conversation with Rupali Naqvi, his , who states that patient has been having this catastrophic thinking for some weeks now. They have been having some problems and frequent arguments about their financial situation. Apparently patient has been spending more money than usual in marijuana. They had an argument about about it the day of the patient decided to commit suicide. Objective Alert: Yes [place]: Person, Place, Date, Situation Mood: Depressed Affect: Blunted Memory Intact: Immediate, Remote Hallucinations: Other (he denies) Delusions: No Delusion Type: Other (not illicit) Suicidal: Ideation (suicidal thoughts, no plan) Homicidal: Ideation (no HI) Insight/Judgment Poor Labs Test 12/26/16 09:29 Sodium Level 139 MEQ/L Potassium Level 3.8 MEQ/L Chloride Level 102 MEQ/L Carbon Dioxide Level 27.9 MEQ/L Anion Gap 9 MEQ/L Blood Urea Nitrogen 21 MG/DL Creatinine 1.53 MG/DL Estimat Glomerular Filtration 45 ML/MIN Rate Random Glucose 110 MG/DL Calcium Level 9.6 MG/DL Triglycerides Level 206 MG/DL Cholesterol Level 303 MG/DL LDL Cholesterol 203 MG/DL HDL Cholesterol 58.4 MG/DL Cholesterol/HDL Ratio 5.18 RATIO Vitals/IOs Vital Signs Date Time Temp Pulse Resp B/P Pulse Ox O2 Delivery O2 Flow Rate FiO2 12/26/16 06:23 98.0 80 16 113/79 96 12/25/16 09:30 Room Air Intake and Output 7/05/0312/25/16 12/26/16 08:00 16:00 00:00 Intake Total 240 ml Balance 240 ml Assessment & Plan Problem List: (1) Depression Assessment & Plan: Patient continues to endorse severe symptoms of depression, catastrophic thinking, severe guiltiness, suicidal thoughts. Will increase trazodone to 100 to help with sleep and depression, continue citalopram 10 mg. Extensive support, motivation and psychoeducation provided. ICD Code: F32.9 Assessment & Plan Estimated LOS: days Justification for Cont. Inpt. Patient has an elevated risk of suicidality and admits to continue hospitalization for stabilization. Problem Qualifiers (1) Depression: Wayne Berkowitz MD Dec 26, 2016 13:54
[2016-12-26 16:58] LABS: HEMOGLOBIN A1a 1.2 %; HEMOGLOBIN A1b 1.7 %; HEMOGLOBIN Ao 84.6 %; HEMOGLOBIN LA1C 2.2 %; HEMOGLOBIN P3 5.7 %
[2016-12-26] MEDS: REMOVE OLD NICODERM (NICOTINE) PATCH T-DERMAL SCH (20:50)
[2016-12-26] MEDS: traZODone HCL 50 MG TAB PO SCH (20:50)
[2016-12-26 21:35] VITALS: BP 174/99; PULSE 83; RESP 15; TEMP 99; O2SAT 96
[2016-12-27] MEDS: LEVOTHYROXINE SODIUM 112 MCG TAB PO SCH (06:00)
[2016-12-27 06:29] VITALS: BP 94/63; PULSE 82; RESP 16; TEMP 97.9
[2016-12-27 06:51] VITALS: BP 94/63; PULSE 82; RESP 16; TEMP 97.9; O2SAT 97
[2016-12-27] MEDS: ATORVASTATIN 80 MG TAB PO SCH (08:49)
[2016-12-27] MEDS: NICOTINE 21 MG/24 HR PATCH T-DERMAL SCH (08:49)
[2016-12-27] MEDS: APIXABAN 5 MG TABLET PO SCH ×2 (08:49→20:19)
[2016-12-27] MEDS: ASPIRIN EC 81 MG TABEC PO SCH (08:49)
[2016-12-27] MEDS: DILTIAZEM-CD 120 MG CAP ER PO SCH (08:49)
--- NOTE | 2016-12-27 09:11 | HHI.PR ---
Subjective Remarks Follow-up hypertension. BP 90/63 this morning started trazodone last night. Patient asymptomatic was up ambulating denies dizziness. States his BP runs low. Discussed with RN, medically stable for transfer to regular psych floor Objective Vitals Vital Signs Date Time Temp Pulse Resp B/P Pulse Ox O2 Delivery O2 Flow Rate FiO2 12/27/16 06:51 97.9 82 16 94/63 97 12/27/16 06:29 97.9 82 16 94/63 12/26/16 21:35 99.0 83 15 174/99 96 I/O 12/26/16 12/26/16 12/26/16 12/27/16 12/27/16 12/27/16 07:00 15:00 23:00 07:00 15:00 23:00 Intake Total 360 ml 840 ml Balance 360 ml 840 ml Intake Oral 360 ml 840 ml # Voids 1 1 Result Diagram: 12/24/16202912/26/16928 Imaging Last Impressions Chest X-Ray 12/24/162024 Signed Impressions: Service Date/Time: Saturday, December 24, 2016 20:41 - CONCLUSION: No acute disease. Toi Call MD FACR Objective Remarks GENERAL: Well-developed, well-nourished in no distress SKIN: Warm and dry. HEAD: Atraumatic. Normocephalic. EYES: Pupils equal and round. No scleral icterus. No injection or drainage. ENT: No nasal bleeding or discharge. Mucous membranes pink and moist. NECK: Trachea midline. No JVD. CARDIOVASCULAR: Regular rate and irregular rhythm. RESPIRATORY: No accessory muscle use. Clear to auscultation. Breath sounds equal bilaterally. GASTROINTESTINAL: Abdomen soft, non-tender, nondistended. MUSCULOSKELETAL: Extremities without clubbing, cyanosis, or edema. No obvious deformities. NEUROLOGICAL: Awake and alert. No obvious cranial nerve deficits. Motor grossly within normal limits. Five out of 5 muscle strength in the arms and legs. Normal speech. PSYCHIATRIC: Appropriate mood and affect; insight and judgment normal. A/P Assessment and Plan This is a 76-year-old male was brought in under [place] act secondary to suicidal ideations with history of depression. He has been noncompliant with medical therapy stating Celexa does not work. Consultation has been requested by his attending to evaluate and manage A. fib and [place]. Atrial fibrillation status post pacemaker placement. He has been noncompliant with medical therapy. He denies chest pain, shortness of breath, palpitations, dizziness and diaphoresis(ER states he had CP and SOB). When he arrived in the emergency department he was in RVR and received Cardizem 20 g IV bolus and started on Cardizem by mouth and Eliquis. CHA2DS vasc of 3 for hypertension, coronary artery disease and age. Patient agrees with anticoagulation. Improved with controlled ventricular response. Coronary artery disease status post stents 4 in 2004. He has been asymptomatic even though noncompliant with medical therapy. Claims negative stress test 2-3 months ago. Noncompliant with aspirin and Plavix. Continue aspirin and hold Plavix patient on Eliquis. Intolerant to beta blockers. Hypothyroidism not controlled TSH of 22 secondary to noncompliance. This can contribute to his depression. We will adjust Synthroid dose to 112 g daily based on his weight and repeat TSH in 6 weeks. PAD status post carotid surgery. On aspirin Hyperlipidemia. 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 Patient is sensitive to antihypertensives stating his blood pressure drops with certain medications which he can't recall but remembers that metoprolol causes hypotension. Patient received fluid bolus in the ED. Repeat BMP shows improving creatinine. Avoid nephrotoxins. Obtain records from [place] for comparison. BP lower this morning after receiving trazodone last night. We'll continue to monitor DVT prophylaxis with Eliquis Discharge Planning Medically stable and cleared for transfer to regular psychiatry floor Long Reid MD Dec 27, 2016 09:11
[2016-12-27] MEDS ORDERED: PILL SPLITTER OTHER PRN (09:45)
--- NOTE | 2016-12-27 12:49 | HHI.PYPN ---
Subjective Remarks Patient was seen today for psychiatric evaluation along with nurse in charge and social worker clinical Mirna, patient shows today's a brighter affect, is more engageable in a conversation, in a better spirits, he says that he had a better sleep last night and his appetite is improved however, still feeling very sad, having intrusive thoughts about his past, his still perseverating about "terrible things that he has been in the past and to his ", feeling very guilty and hopeless. Patient reports suicidal thoughts, but not suicidal intentions at this moment. He is oriented 3, compliant with medications, no significant side effects reported. As per nurses patient has been isolated, mostly in bed and internally preoccupied. Review of Systems Other No somatic complaints Objective Alert: Yes [employer]: Person, Place, Date, Situation Mood: Depressed Affect: Blunted Memory Intact: Immediate, Remote Hallucinations: Other (he denies) Delusions: No Delusion Type: Other (not illicit) Suicidal: Ideation (suicidal thoughts, no plan) Homicidal: Ideation (no HI) Insight/Judgment Poor Vitals/IOs Vital Signs Date Time Temp Pulse Resp B/P Pulse Ox O2 Delivery O2 Flow Rate FiO2 12/27/16 06:51 97.9 82 16 94/63 97 12/25/16 09:30 Room Air Intake and Output 12/26/16 12/26/16 12/27/16 08:00 16:00 00:00 Intake Total 360 ml 840 ml Balance 360 ml 840 ml Assessment & Plan Problem List: (1) Depression Assessment & Plan: Patient continues to show depressive symptoms, suicidal thoughts, neurovegetative symptoms. Some improvement in his affect, no changes in psychotropics today, but most probably will increase citalopram tomorrow. ICD Code: F32.9 Assessment & Plan Estimated LOS: days Justification for Cont. Inpt. Patient is acutely depressed, has a recent suicidal attempt, unpredictable, needs to continue psychiatric hospitalization for stabilization and safety Problem Qualifiers (1) Depression: Wayne Berkowitz MD Dec 27, 2016 12:49
[2016-12-27 17:53] VITALS: BP 116/79; PULSE 77; RESP 16; TEMP 99.2; O2SAT 97
[2016-12-27] MEDS: traZODone HCL 50 MG TAB PO SCH (20:19)
[2016-12-27] MEDS: REMOVE OLD NICODERM (NICOTINE) PATCH T-DERMAL SCH (20:20)
[2016-12-28] MEDS: LEVOTHYROXINE SODIUM 112 MCG TAB PO SCH (06:10)
[2016-12-28 06:17] VITALS: BP 100/65; PULSE 74; RESP 16; TEMP 97; O2SAT 96
[2016-12-28] MEDS: NICOTINE 21 MG/24 HR PATCH T-DERMAL SCH (09:00)
[2016-12-28] MEDS: CITALOPRAM HYDROBROMIDE 20 MG TAB PO SCH ×2 (09:00→09:43)
[2016-12-28] MEDS: ASPIRIN EC 81 MG TABEC PO SCH (09:42)
[2016-12-28] MEDS: ATORVASTATIN 80 MG TAB PO SCH (09:42)
[2016-12-28] MEDS: DILTIAZEM-CD 120 MG CAP ER PO SCH (09:42)
[2016-12-28] MEDS: APIXABAN 5 MG TABLET PO SCH ×2 (09:42→20:24)
--- NOTE | 2016-12-28 10:05 | HHI.PR ---
Subjective Remarks Follow-up hypertension. BP improved. Patient has no complaints. Discussed with RN, to follow up requested outside records specially BMP for comparison Objective Vitals Vital Signs Date Time Temp Pulse Resp B/P Pulse Ox O2 Delivery O2 Flow Rate FiO2 12/28/16 06:17 97.0 74 16 100/65 96 12/27/16 17:53 99.2 77 16 116/79 97 I/O 12/27/16 12/27/16 12/27/16 12/28/16 12/28/16 12/28/16 07:00 15:00 23:00 07:00 15:00 23:00 Intake Total 900 ml 1170 ml 480 ml Balance 900 ml 1170 ml 480 ml Intake Oral 900 ml 1170 ml 480 ml # Voids 1 2 2 1 Result Diagram: 12/24/16202912/26/16 0929 Objective Remarks GENERAL: Well-developed, well-nourished in no distress SKIN: Warm and dry. HEAD: Atraumatic. Normocephalic. EYES: Pupils equal and round. No scleral icterus. No injection or drainage. ENT: No nasal bleeding or discharge. Mucous membranes pink and moist. NECK: Trachea midline. No JVD. CARDIOVASCULAR: Regular rate and irregular rhythm. RESPIRATORY: No accessory muscle use. Clear to auscultation. Breath sounds equal bilaterally. GASTROINTESTINAL: Abdomen soft, non-tender, nondistended. MUSCULOSKELETAL: Extremities without clubbing, cyanosis, or edema. NEUROLOGICAL: Awake and alert. No obvious cranial nerve deficits. Motor grossly within normal limits. Five out of 5 muscle strength in the arms and legs. Normal speech. PSYCHIATRIC: Appropriate mood and affect; insight and judgment normal. A/P Assessment and Plan This is a 76-year-old male was brought in under [employer] act secondary to suicidal ideations with history of depression. He has been noncompliant with medical therapy stating Celexa does not work. Consultation has been requested by his attending to evaluate and manage A. fib and [place]. Atrial fibrillation status post pacemaker placement. He has been noncompliant with medical therapy. He denies chest pain, shortness of breath, palpitations, dizziness and diaphoresis(ER states he had CP and SOB). When he arrived in the emergency department he was in RVR and received Cardizem 20 g IV bolus and started on Cardizem by mouth and Eliquis. CHA2DS vasc of 3 for hypertension, coronary artery disease and age. Patient agrees with anticoagulation. Improved with controlled ventricular response. Coronary artery disease status post stents 4 in 2004. He has been asymptomatic even though noncompliant with medical therapy. Claims negative stress test 2-3 months ago. Noncompliant with aspirin and Plavix. Continue aspirin and hold Plavix patient on Eliquis. Intolerant to beta blockers. Hypothyroidism not controlled TSH of 22 secondary to noncompliance. This can contribute to his depression. We will adjust Synthroid dose to 112 g daily based on his weight and repeat TSH in 6 weeks. PAD status post carotid surgery. On aspirin Hyperlipidemia. 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 Patient is sensitive to antihypertensives stating his blood pressure drops with certain medications which he can't recall but remembers that metoprolol causes hypotension. Patient received fluid bolus in the ED. Repeat BMP shows improving creatinine. Avoid nephrotoxins. Obtain records from [place] for comparison. BP improved we'll continue to monitor DVT prophylaxis with Eliquis Discharge Planning Medically stable and cleared for transfer to regular psychiatry floor Long Reid MD Dec 28, 2016 10:05 Long Reid MD Dec 28, 2016 10:05
--- NOTE | 2016-12-28 14:02 | HHI.PYPN ---
Subjective Remarks Patient seen today for psychiatric reevaluation along with nurse in charge and long term care social worker Mirna. Patient says that he has been thinking about "but decisions that I have made in the past and torture me", but reports improved sleep, better level of energy, poor appetite. Even though he is future oriented , seems to be responding well to medications, still have suicidal thoughts, but not specific plan. Patient is fully oriented 3, denies visual and auditory hallucinations. Fully compliant with medications, no side effects. No agitation, no aggressive behavior, no paranoia, no delusions. [facility] [place] [facility] of care from [facility] to outpatient next week if necessary. Objective Alert: Yes [place]: Person, Place, Date, Situation Mood: Depressed Affect: Blunted Memory Intact: Immediate, Remote Hallucinations: Other (he denies) Delusions: No Delusion Type: Other (not illicit) Suicidal: Ideation (suicidal thoughts, no plan) Homicidal: Ideation (no HI) Insight/Judgment Fair Vitals/IOs Vital Signs Date Time Temp Pulse Resp B/P Pulse Ox O2 Delivery O2 Flow Rate FiO2 12/28/16 06:17 97.0 74 16 100/65 96 12/25/16 09:30 Room Air Intake and Output 12/27/16 12/27/16 12/27/16 07:59 15:59 23:59 Intake Total 900 ml 1170 ml Balance 900 ml 1170 ml Assessment & Plan Problem List: (1) Depression Assessment & Plan: Today patient presents a brighter affect, seems to be more motivated, future oriented, compliant with medications, good response, no significant side effects. He also reports better sleep at night. Still reports suicidal thoughts, no plan, preoccupations about guiltiness. We'll increase citalopram to 20 mg daily. Continue trazodone 100 mg at bedtime to sleep. Extensive support, motivation and psychoeducation provided. ICD Code: F32.9 Assessment & Plan Estimated LOS: days Justification for Cont. Inpt. Patient has a very high risk to decompensate at a lower level of care. Problem Qualifiers (1) Depression: Wayne Berkowitz MD Dec 28, 2016 14:02
[2016-12-28 17:49] VITALS: BP 89/60; PULSE 78; RESP 17; TEMP 99.1; O2SAT 98
[2016-12-28] MEDS: traZODone HCL 50 MG TAB PO SCH (20:24)
[2016-12-28] MEDS: REMOVE OLD NICODERM (NICOTINE) PATCH T-DERMAL SCH (20:31)
[2016-12-29 05:14] VITALS: BP 115/68; PULSE 64; RESP 14; TEMP 97.8; O2SAT 97
[2016-12-29] MEDS: LEVOTHYROXINE SODIUM 112 MCG TAB PO SCH (05:51)
--- NOTE | 2016-12-29 08:08 | HHI.PR ---
Subjective Remarks Follow-up A. fib. BP 89/60 at 6 PM yesterday, he was asymptomatic. Patient is doing okay understands she needs to be compliant with his medications. Outside records reviewed he has chronic kidney disease stage III GFR of 42 creatinine 1.59. Discussed with RN Objective Vitals Vital Signs Date Time Temp Pulse Resp B/P Pulse Ox O2 Delivery O2 Flow Rate FiO2 12/29/16 05:14 97.8 64 14 115/68 97 12/28/16 17:49 99.1 78 17 89/60 98 I/O 12/28/16 12/28/16 12/28/16 12/29/16 12/29/16 12/29/16 07:00 15:00 23:00 07:00 15:00 23:00 Intake Total 1200 ml 720 ml Balance 1200 ml 720 ml Intake Oral 1200 ml 720 ml # Voids 1 2 2 1 Result Diagram: 12/26/1629 Imaging Last Impressions Chest X-Ray 12/24/162024 Signed Impressions: Service Date/Time: Saturday, December 24, 2016 20:41 - CONCLUSION: No acute disease. Toi Call MD FACR Objective Remarks GENERAL: Well-developed, well-nourished in no distress SKIN: Warm and dry. HEAD: Atraumatic. Normocephalic. EYES: Pupils equal and round. No scleral icterus. No injection or drainage. ENT: No nasal bleeding or discharge. Mucous membranes pink and moist. NECK: Trachea midline. No JVD. CARDIOVASCULAR: Regular rate and irregular rhythm. RESPIRATORY: No accessory muscle use. Clear to auscultation. Breath sounds equal bilaterally. GASTROINTESTINAL: Abdomen soft, non-tender, nondistended. MUSCULOSKELETAL: Extremities without clubbing, cyanosis, or edema. NEUROLOGICAL: Awake and alert. No obvious cranial nerve deficits. Motor grossly within normal limits. Five out of 5 muscle strength in the arms and legs. PSYCHIATRIC: Appropriate mood and affect; insight and judgment normal. A/P Assessment and Plan This is a 76-year-old male was brought in under [place] act secondary to suicidal ideations with history of depression. He has been noncompliant with medical therapy stating Celexa does not work. Consultation has been requested by his attending to evaluate and manage A. fib and [place]. Atrial fibrillation status post pacemaker placement. He has been noncompliant with medical therapy. He denies chest pain, shortness of breath, palpitations, dizziness and diaphoresis(ER states he had CP and SOB). When he arrived in the emergency department he was in RVR and received Cardizem 20 g IV bolus and started on Cardizem by mouth and Eliquis. CHA2DS vasc of 3 for hypertension, coronary artery disease and age. Patient agrees with anticoagulation. Improved with controlled ventricular response. Coronary artery disease status post stents 4 in 2004. He has been asymptomatic even though noncompliant with medical therapy. Claims negative stress test 2-3 months ago. Noncompliant with aspirin and Plavix. Continue aspirin and hold Plavix patient on Eliquis. Intolerant to beta blockers. Hypothyroidism not controlled TSH of 22 secondary to noncompliance. This can contribute to his depression. We will adjust Synthroid dose to 112 g daily based on his weight and repeat TSH in 6 weeks. PAD status post carotid surgery. On aspirin Hyperlipidemia. 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 Patient is sensitive to antihypertensives stating his blood pressure drops with certain medications which he can't recall but remembers that metoprolol causes hypotension. Patient received fluid bolus in the ED. Repeat BMP shows improving creatinine. Avoid nephrotoxins. BP labile we'll continue to monitor DVT prophylaxis with Eliquis Discharge Planning Medically stable and cleared for transfer to regular psychiatry floor Long Reid MD Dec 29, 2016 08:08
[2016-12-29] MEDS: APIXABAN 5 MG TABLET PO SCH ×2 (08:56→20:42)
[2016-12-29] MEDS: CITALOPRAM HYDROBROMIDE 20 MG TAB PO SCH (08:56)
[2016-12-29] MEDS: DILTIAZEM-CD 120 MG CAP ER PO SCH (08:56)
[2016-12-29] MEDS: ASPIRIN EC 81 MG TABEC PO SCH (08:56)
[2016-12-29] MEDS: ATORVASTATIN 80 MG TAB PO SCH (08:56)
[2016-12-29] MEDS: NICOTINE 21 MG/24 HR PATCH T-DERMAL SCH (08:57)
--- NOTE | 2016-12-29 13:58 | HHI.PYPN ---
Subjective Remarks Patient seen and examined with nurse. Chart reviewed. Case discussed with nursing staff. No behavioral issues noted. On my examination today, the patient is calm and cooperative with evaluation. He says his mood "seems to be fine." Appetite a little poor but sleep is reportedly good. He denies any suicidal or homicidal ideation today. Denies side effects from medications. No physical complaints. Review of Systems Except as stated in HPI: all other systems reviewed are Neg Objective Alert: Yes [place]: Person (O x 3) Mood: Calm Affect: Appropriate Memory Intact: Comment (not formally assessed) Hallucinations: Other (no hallucinations) Delusions: No Delusion Type: Other (no delusions) Suicidal: Ideation (denies suicidal ideation) Homicidal: Ideation (denies homicidal ideation) Insight/Judgment Fair Remarks No motor abnormalities noted. Thought processes linear. Labs Labs reviewed. Mild leukocytosis noted. GFR improving. Vitals/IOs Vital Signs Date Time Temp Pulse Resp B/P Pulse Ox O2 Delivery O2 Flow Rate FiO2 12/29/16 05:14 97.8 64 14 115/68 97 12/25/16 09:30 Room Air Intake and Output 12/28/16 12/28/16 12/29/16 08:00 16:00 00:00 Intake Total 1200 ml 720 ml Balance 1200 ml 720 ml Assessment & Plan Problem List: (1) Depression ICD Code: F32.9 Assessment & Plan Continue Celexa and trazodone as ordered. Appreciate ongoing hospitalist input. Continue other medications and care as ordered. Justification for Cont. Inpt. Risk for decompensation Discharge Planning Per Dr. Berkowitz Problem Qualifiers (1) Depression: Nilo Nevarez MD Dec 29, 2016 13:57
[2016-12-29 18:00] VITALS: BP 97/72; PULSE 68; RESP 16; TEMP 98.8; O2SAT 95
[2016-12-29] MEDS: traZODone HCL 50 MG TAB PO SCH (20:41)
[2016-12-29] MEDS: REMOVE OLD NICODERM (NICOTINE) PATCH T-DERMAL SCH (20:45)
[2016-12-30 05:36] VITALS: BP 135/62; PULSE 62; RESP 15; TEMP 96.7; O2SAT 96
[2016-12-30] MEDS: LEVOTHYROXINE SODIUM 112 MCG TAB PO SCH (06:23)
[2016-12-30] MEDS: REMOVE OLD NICODERM (NICOTINE) PATCH T-DERMAL SCH (07:20)
[2016-12-30] MEDS: NICOTINE 21 MG/24 HR PATCH T-DERMAL SCH (07:20)
[2016-12-30] MEDS: DILTIAZEM-CD 120 MG CAP ER PO SCH (08:05)
[2016-12-30] MEDS: ASPIRIN EC 81 MG TABEC PO SCH (08:05)
[2016-12-30] MEDS: CITALOPRAM HYDROBROMIDE 20 MG TAB PO SCH (08:05)
[2016-12-30] MEDS: APIXABAN 5 MG TABLET PO SCH ×3 (08:05→21:49)
[2016-12-30] MEDS: ATORVASTATIN 80 MG TAB PO SCH (08:08)
--- NOTE | 2016-12-30 10:29 | HHI.PR ---
Subjective Remarks Follow-up A. fib, hypothyroidism. Patient seen and examined today. Reports he is doing well. Reports poor appetite. States he can't chew his food because he doesn't have lower dentures. Denies pain and discomfort. Denies SOB/ dyspnea. Denies chest pain, palpitations, headaches, dizziness. Denies fevers, chills, n/v/d. Denies dysuria. Objective Vitals Vital Signs Date Time Temp Pulse Resp B/P Pulse Ox O2 Delivery O2 Flow Rate FiO2 12/30/16 05:36 96.7 62 15 135/62 96 12/29/16 18:00 98.8 68 16 97/72 95 I/O 12/29/16 12/29/16 12/29/16 12/30/16 12/30/16 12/30/16 07:00 15:00 23:00 07:00 15:00 23:00 Intake Total 480 ml 1080 ml Balance 480 ml 1080 ml Intake Oral 480 ml 1080 ml # Voids 1 1 Result Diagram: 12/26/16928 Imaging Last Impressions Chest X-Ray 12/24/162024 Signed Impressions: Service Date/Time: Saturday, December 24, 2016 20:41 - CONCLUSION: No acute disease. Toi Call MD FACR Objective Remarks GENERAL: This is a thin-appearing, well-developed patient, in no apparent distress. SKIN: Warm and dry HEENT: Normocephalic. Pupils equal round and reactive. Nose without bleeding. Airway patent. NECK: Trachea midline. No JVD. Supple. CARDIOVASCULAR: Regular rate and rhythm without murmurs, gallops, or rubs. RESPIRATORY: Clear to auscultation. Breath sounds equal bilaterally. No wheezes , rales, or rhonchi. GASTROINTESTINAL: Abdomen soft, non-tender, nondistended. Bowel Sounds normoactive x4. MUSCULOSKELETAL: Extremities without clubbing, cyanosis, or edema. NEUROLOGICAL: Awake and alert. Oriented to place, person. No focal neuro deficit. Moves all extremities. Normal speech. A/P Problem List: (1) Depression ICD Code: F32.9 Status: Acute (2) Chronic a-fib ICD Code: I48.2 Status: Acute (3) Hypothyroidism ICD Code: E03.9 Status: Acute (4) Atrial fibrillation with RVR ICD Code: I48.91 Status: Acute Assessment and Plan This is a 76-year-old male was brought in under [place] act secondary to suicidal ideations with history of depression. He has been noncompliant with medical therapy stating Celexa does not work. Consultation has been requested by his attending to evaluate and manage A. fib and [place]. Atrial fibrillation status post pacemaker placement. - He has been noncompliant with medical therapy. He denies chest pain, shortness of breath, palpitations, dizziness and diaphoresis(ER states he had CP and SOB). When he arrived in the emergency department he was in RVR and received Cardizem 20 g IV bolus and started on Cardizem by mouth and Eliquis. - CHA2DS vasc of 3 for hypertension, coronary artery disease and age. - Patient agrees with anticoagulation, Eliquis started - Improved with controlled ventricular response. Coronary artery disease status post stents 4 in 2004. - He has been asymptomatic even though noncompliant with medical therapy. Claims negative stress test 2-3 months ago. - Noncompliant with aspirin and Plavix. Continue aspirin and hold Plavix patient on Eliquis. - Intolerant to beta blockers. Hypothyroidism not controlled TSH of 22 secondary to noncompliance. - This can contribute to his depression. - We will adjust Synthroid dose to 112 g daily based on his weight - Repeat TSH in 6 weeks. PAD status post carotid surgery. - On aspirin Hyperlipidemia. 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 Patient is sensitive to antihypertensives stating his blood pressure drops with certain medications which he can't recall but remembers that metoprolol causes hypotension. Patient received fluid bolus in the ED. Repeat BMP shows improving creatinine. Avoid nephrotoxins. BP labile we'll continue to monitor DVT prophylaxis with Eliquis Full code Discuss with patient, nursing, Dr. Reid Problem Qualifiers (1) Depression: (2) Hypothyroidism: Qualified Code: E03.9 - Hypothyroidism, unspecified type Cele Shaw Dec 30, 2016 10:29
--- NOTE | 2016-12-30 11:52 | HHI.PYPN ---
Subjective Remarks Patient seen and examined with nurse. Chart reviewed. Case discussed with nursing staff. No behavioral issues noted. On my examination today, the patient is in good spirits. He is looking forward to discharge after the weekend. Denies suicidal or homicidal ideation. Denies side effects from medications. No physical complaints. Requests that nicotine patch be discontinued as he does not smoke. Review of Systems Except as stated in HPI: all other systems reviewed are Neg Objective Alert: Yes [place]: Person (O x 3) Mood: Calm (remains calm) Affect: Appropriate Memory Intact: Comment (no deficits noted) Hallucinations: Other (no AVH) Delusions: No Delusion Type: Other (no delusions) Suicidal: Ideation (again denies SI) Homicidal: Ideation (again denies HI) Insight/Judgment Fair Remarks No motor abnormalities noted Labs Labs reviewed. Vitals/IOs Vital Signs Date Time Temp Pulse Resp B/P Pulse Ox O2 Delivery O2 Flow Rate FiO2 12/30/16 05:36 96.7 62 15 135/62 96 Intake and Output 12/29/16 12/29/16 12/29/16 07:59 15:59 23:59 Intake Total 360 ml 120 ml 1080 ml Balance 360 ml 120 ml 1080 ml Assessment & Plan Problem List: (1) Depression ICD Code: F32.9 Assessment & Plan Discontinue nicotine patch. Continue other medications and care as ordered. Continue to monitor on the unit. Justification for Cont. Inpt. Risk for decompensation Discharge Planning Per Dr. Georges Problem Qualifiers (1) Depression: Nilo Nevarez MD Dec 30, 2016 11:52
[2016-12-30] MEDS: traZODone HCL 50 MG TAB PO SCH (21:00)
[2016-12-31] MEDS: LEVOTHYROXINE SODIUM 112 MCG TAB PO SCH (06:00)
[2016-12-31 06:03] VITALS: BP 93/60; PULSE 65; RESP 16; TEMP 98.1; O2SAT 98
[2016-12-31] MEDS: CITALOPRAM HYDROBROMIDE 20 MG TAB PO SCH (09:00)
[2016-12-31] MEDS: ASPIRIN EC 81 MG TABEC PO SCH (09:11)
[2016-12-31] MEDS: ATORVASTATIN 80 MG TAB PO SCH (09:11)
[2016-12-31] MEDS: APIXABAN 5 MG TABLET PO SCH (09:12)
[2016-12-31] MEDS: DILTIAZEM-CD 120 MG CAP ER PO SCH (09:12)
[2016-12-31] MEDS ORDERED: APIX5TAB PO (09:48)
[2016-12-31] MEDS ORDERED: ATOR1TAB18 PO (09:48)
[2016-12-31] MEDS ORDERED: TRAZ100T6 PO (09:48)
[2016-12-31] MEDS ORDERED: SYNT112T PO (09:48)
[2016-12-31] MEDS ORDERED: CELE20TA PO (09:48)
[2016-12-31] MEDS ORDERED: CARD120C4 PO (09:48)
[2016-12-31] MEDS ORDERED: ASPI-99 PO (09:48)
--- NOTE | 2016-12-31 09:56 | HHI.DS ---
Psychiatry Discharge Summary Inpatient Psychiatric care?: Yes Advance Directive: No Reason Not Provided: Due to Patient Condition Mental Health AdvanceDirective: No Health Care Proxy: No Admission Admission Date Dec 25, 2016 at 08:18 Admission Diagnosis: (1) Depression ICD Code: F32.9 Brief History The patient is a 76-year-old man, domiciled in [place] with , retired, , with psychiatric history of PTSD, depression, cannabis use disorder, no previous hospitalizations, no active outpatient services, no psychotropics at this moment, no previous suicidal attempts, medical history of COPD, hypothyroidism, hyperlipidemia, pacemaker, coronary artery disease, throat cancer in remission, atrial fibrillation, presenting to emergency for under [place] act to suicidal ideations. Additionally patient has initially complained of chest pain or shortness of breath. Or to noncompliance of his medications for well over a year. He states she's been depressed for some time , he was previously prescribed citalopram but states marijuana works better. Patient denies any previous suicide attempt but states he's thought about suicide for some. On psychiatric evaluation today patient is found in his bed, he is tearful, seems to be objectively depressed, melancholic, just superficially cooperative, stating that he doesn't deserve to live anymore. Patient says that he has been having suicidal thoughts for a long time now, but yesterday he left his house in [place], he left a suicidal note to his , and he came to [place], went to a motel, bought some razors with the idea of cutting his wrist. Patient says that he doesn't know the reason of his depression. He says that he has been under the heel in the last months, feeling hopeless, helpless, empty, with generalized pessimism, useless, and very guilty about significant episodes his past. 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 Patient refused to elaborate about these thoughts and a stressful memories. Patient also reports poor energy, low appetite, weight loss, he has stopped taking his medication for medical conditions. Patient is fully oriented 3, but not further cognitive test could be performed due to lack of cooperation. Patient reports daily use of marijuana, occasional use of alcohol, denies other drugs. Patient says that he uses alcohol once a month, before just today he had several months without taking any alcohol. But, just today he drank a couple of beers in order to "do what I had to do without remorse". I try to get collateral information for his , , but unfortunately she did not order picker the phone at this moment. 12/26/[address] Georges reviewed and agreed with. Patient seen by me in his room with floor staff, patient is alert though severely depressed with moderate psychomotor retardation, severe suicidality with suicidal intent. Patient lives Dr. Georges service. He is not first opinion petition supporting Hudson act. I agree. Patient meets criteria for involuntary psychiatric hospitalization under the Hudson act. I will sign second opinion petition supporting Hudson act Tobacco Use In Past 30 Days: No Tobacco Past 30 Days Alcohol Use: Never Hospital Course Patient coping well with the initial admission them the transferred to the med psych unit for treatment of his cardiac issues. He has been recently transferred back to the psychiatric unit. Patient seen today by me. He denies suicidality homicidality voices or visions. Is excited about discharge to his today. He agrees to compliance with medication and his follow-up appointment with the [facility] clinic in [place] later this week. Thus patient is Riches maximum benefit of this hospitalization is to discharged today to his with Rx 1 month follow-up ME clinic in [place] Results Blood Pressure 93 / 60 Vital Signs Date Time Temp Pulse Resp B/P Pulse Ox O2 Delivery O2 Flow Rate FiO2 12/31/16 06:03 98.1 65 16 93/60 98 Please see EMR for full lab results Summary of Procedures None done Imaging Last Impressions Chest X-Ray 12/24/162024 Signed Impressions: Service Date/Time: Saturday, December 24, 2016 20:41 - CONCLUSION: No acute disease. Toi Call MD FACR Pending results at discharge: No Medications # of Antipsychotic meds at D/C: 0 Approp Antipsych med options 1 - Minimum of three failed multiple trials of monotherapy. 2 - Documented plan to taper to monotherapy due to previous use of multiple meds OR cross-taper in progress at D/C. 3 - Documentation of augmentation of Clozapine. 4 - Justification other than those listed in allowable values 1-3, document here : Discharge Discharge Date: Dec 31, 2016 Discharge Diagnosis: (1) Depression ICD Code: F32.9 Mental Status Exam at Disch Alert Dr. meneses thin white male appearing stated age he is cooperative. He is normoactive. He is euthymic with full range intensity of his affect. Speech rate and rhythm within normal limits though no formal thought disorders. No auditory or visual hallucinations. No delusions. Insight and judgment is poor to fair. Cognition grossly intact Pt Condition on Discharge: Stable Discharge Disposition: Discharge Home Discharge Instructions Diet Instructions: As Tolerated, No Restrictions Activities you can perform: Regular-No Restrictions Scheduled Appointment: follow-up ME clinic in [place] Discharge Time > 30 minutes Discharge/Advance Care Plan Health Problems: (1) Depression Goals to promote your health * To prevent worsening of your condition and complications * To maintain your health at the optimal level Directions to meet your goals Take your medications as prescribed Follow your dietary instruction Follow activity as directed Keep your appointments as scheduled Take your immunizations and boosters as scheduled If your symptoms worsen call your PCP, if no PCP go to Urgent Care Center or Emergency Room For 07/01 questions related to your inpatient stay or results of tests pending at discharge, please contact Dr. Alex Pérez at Smoking is Dangerous to Your Health. Avoid second hand smoking Problem Qualifiers (1) Depression: Qualified Code: F32.2 - Severe single current episode of major depressive disorder, without psychotic features Alex Pérez MD Dec 31, 2016 09:56
== END 2016-12-31 12:30 | disposition home or self-care (01) | DRG 885 ==
LOC: NEDAMB 20:09 → NEDA 12-25 08:18 → H4EA 12-25 10:10 → H260 12-30 14:14
PROVIDERS: ADMIT Psychiatry & Neurology Psychiatry; ATTEND Psychiatry & Neurology Psychiatry
DX: F32.2 Major depressive disorder, single episode, severe without psychotic features (principal); I48.2 Chronic atrial fibrillation; R45.851 Suicidal ideations; F43.10 Post-traumatic stress disorder, unspecified; I73.9 Peripheral vascular disease, unspecified; E03.9 Hypothyroidism, unspecified; E78.5 Hyperlipidemia, unspecified; I25.10 Atherosclerotic heart disease of native coronary artery without angina pectoris; J44.9 Chronic obstructive pulmonary disease, unspecified; I12.9 Hypertensive chronic kidney disease with stage 1 through stage 4 chronic kidney disease, or unspecified chronic kidney disease; N18.3 Chronic kidney disease, stage 3 (moderate); G47.00 Insomnia, unspecified; Z91.14 Patient's other noncompliance with medication regimen; Z95.0 Presence of cardiac pacemaker; Z95.5 Presence of coronary angioplasty implant and graft; Z85.819 Personal history of malignant neoplasm of unspecified site of lip, oral cavity, and pharynx; Z92.3 Personal history of irradiation
CPT/HCPCS: 71010; 80048; 80053; 80061; 81001; 82550; 83036; 83735; 83880; 84439; 84443; 84484; 85025; 85610; 85730; 93005; 96374; 96375; J2060; J2405; J7040